=== PATIENT | male | born 1955 | race Caucasian/White ===

== ENCOUNTER 2016-09-26 16:10 | Inpatient (IN) | payer MEDICAID ==
[2016-09-26] MEDS ORDERED: Albuterol/Ipratropium NEB.SOL* Albuterol 2.5 MG/Ipratropium 0.5 MG 3 ML INH ONE ×2 (16:48→17:36)
[2016-09-26] MEDS ORDERED: predniSONE TAB* 20 MG PO ONE (16:50)
[2016-09-26] MEDS ORDERED: NS 0.9% 1000 ML* 1,000 ML IV ONE (16:50)
[2016-09-26 17:04] LABS: Hematocrit 51 % (42-52); Hemoglobin 17.3 g/dl (14.0-18.0); Mean Corpuscular HGB Conc 34 g/dl (31-36); Mean Corpuscular Hemoglobin 32 pg (27-31); Mean Corpuscular Volume 96 fL (80-94); Mean Platelet Volume 10 um3 (7.4-10.4); Red Blood Count 5.34 10^6/ul (4.0-5.4); Red Cell Distribution Width 13 % (10.5-15); White Blood Count 7.5 10^3/ul (3.5-10.8)
--- NOTE | 2016-09-26 17:18 | RAD ---
HISTORY: Shortness of breath COMPARISONS: None VIEWS:1: Single frontal portable view of the chest at 5:08 PM FINDINGS: LINES AND TUBES: None. CARDIOMEDIASTINAL SILHOUETTE: The cardiomediastinal silhouette is normal for portable technique. PLEURA: The costophrenic angles are sharp. No pleural abnormalities are noted. LUNG PARENCHYMA: There is hyperinflation. ABDOMEN: The upper abdomen is clear. There is no subphrenic gas. BONES AND SOFT TISSUES: There are chronic appearing right-sided rib fractures IMPRESSION: HYPERINFLATION, SUGGESTIVE OF COPD. NO ACTIVE CARDIOPULMONARY DISEASE.
[2016-09-26 17:19] LABS: Troponin I 0.01 ng/mL (<0.04)
[2016-09-26 17:21] LABS: BUN/Creatinine Ratio 24.7 (8-20); Blood Urea Nitrogen 19 mg/dL (6-24); CO2 Carbon Dioxide 31 mmol/L (22-32); Calcium 9.7 mg/dL (8.6-10.3); Chloride 103 mmol/L (101-111); EGFR African American 132.1 (>60); EGFR Non-African American 102.7 (>60); Glucose 135 mg/dL (70-100); Sodium 140 mmol/L (133-145)
[2016-09-26 17:33] LABS: Anion Gap 6 mmol/L (2-11); Potassium 3.2 mmol/L (3.5-5.0)
--- NOTE | 2016-09-26 18:20 | ED ---
Milagros Razo Claudia, scribed for Sebastian Stoll MD on 09/26/16 at 1652 . Shortness of Breath - HPI Summary HPI Summary: 60 year old male presents to the ED with SOB. Pt notes that he has had a cough/ congestion for the past week which progressively worsened today. Pt denies any fever or chills. Pt notes that he is a smoker but has not been smoking this week while he felt sick. PT denies any CP, palpations. Pt notes aggravating factor of Sx is when he lays in the supine position. - History of Current Complaint Chief Complaint: EDShortnessOfBreath Time Seen by Provider: 09/26/16 16:45 Hx Obtained From: Patient Onset/Duration: Gradual Onset, Still Present, Worse Since - today Associated Signs & Symptoms: Cough (Productive) PMH/Surg Hx/FS Hx/Imm Hx Previously Healthy: Yes Endocrine/Hematology History: Denies: Hx Diabetes Infectious Disease History: No Infectious Disease History: Denies: Traveled Outside the in Last 30 Days - Family History Known Family History: Negative: Cardiac Disease, Hypertension, Diabetes - Social History Occupation: Employed Full-time Lives: Alone Hx Tobacco Use: Yes Review of Systems Constitutional: Negative Negative: Fever Eyes: Negative ENT: Negative Cardiovascular: Negative Negative: Palpitations, Chest Pain Positive: Shortness Of Breath, Cough Gastrointestinal: Negative Genitourinary: Negative Musculoskeletal: Negative Skin: Negative Neurological: Negative Psychological: Normal All Other Systems Reviewed And Are Negative: Yes Physical Exam Triage Information Reviewed: Yes Vital Signs On Initial Exam: Initial Vitals Temp Pulse Resp BP Pulse Ox 99.2 F 108 24 156/108 90 09/26/16 16:13 09/26/16 16:13 09/26/16 16:13 09/26/16 16:13 09/26/16 16:13 Vital Signs Reviewed: Yes Appearance: Positive: Well-Appearing Skin: Positive: Warm, Dry Eyes: Positive: Normal ENT: Positive: Other - dry mouth Neck: Positive: Supple Respiratory/Lung Sounds: Positive: Wheezes - expiratory wheezes bilterally, Other - mild respiratory distress, good peripheral perfusion. Negative: Clear to Auscultation Cardiovascular: Positive: RRR, Other Abdomen Description: Positive: Nontender, Soft Musculoskeletal: Positive: Normal Neurological: Positive: Normal Psychiatric: Positive: Affect/Mood Appropriate Diagnostics - Vital Signs Vital Signs Temp Pulse Resp BP Pulse Ox 09/26/16 16:13 99.2 F 108 24 156/108 90 - Laboratory Result Diagrams: 09/26/16 16:50 09/26/16 16:50 Lab Statement: Any lab studies that have been ordered have been reviewed, and results considered in the medical decision making process. - Radiology CXR Xray Interpretation: No Acute Changes - NO ACUTE CARDIOPULMONARY DIEASE. HYPERINFLATION, SUGGESTIVE OF COPD. Radiology Interpretation Completed By: Radiologist - EKG No standard instances Cardiac Rate: Tachycardia - HR 102 with infrquent PVC. EKG Rhythm: Sinus Tachycardia Ectopy: PVCs - No previous EKG for comparison. Re-Evaluation - Re-Evaluation 1 Re-Evaluation Time: 17:32 Change: Improved - pt notes after 1st brething treatment he is feeling improved. Course/Dx - Diagnoses Differential Diagnosis/HQI/PQRI: Positive: CHF, COPD Exacerbation, [place], Pneumonia , Other - Primary concern for COPD exacerbation, although does not yet have this medical diagnosis since not seen a physician for nearly a decade. Counseled to quit smoking for 3 minutes. Provider Diagnoses: Hypoxia, COPD exacerbation - Physician Notifications Discussed Care of Patient With: Discussed care of pt with Dr. Echeverria. Dr. Echeverria recommends a flu swab and admission for observation. Time Discussed With Above Provider: 18:17 - Critical Care Time Critical Care Time: 30-74 min Discharge - Discharge Plan Condition: Stable Disposition: ADMITTED TO [facility] documentation as recorded by the Milagros bell Claudia accurately reflects the service I personally performed and the decisions made by , Sebastian Stoll MD.
[2016-09-26] MEDS: methylPREDNISolone 125 MG* 2 ML VIAL IV SCH (18:51)
[2016-09-26] MEDS ORDERED: Temazepam CAP* 15 MG PO PRN (19:23)
[2016-09-26] MEDS ORDERED: Al Hydrox/Mg Hydrox/Simet LIQ* 30 ML UDC PO PRN (19:23)
[2016-09-26] MEDS ORDERED: Potassium Chlor TAB* 20 MEQ TAB.ER PO ONE (19:26)
[2016-09-26 19:40] LABS: Alcohol < 10 mg/dL (<10)
[2016-09-26] MEDS: NS 0.9% 1000 ML* 1,000 ML IV SCH (20:30)
--- NOTE | 2016-09-26 20:42 | HP ---
HISTORY AND PHYSICAL: DATE OF ADMISSION: 09/26/16 PRIMARY CARE PHYSICIAN: None. CHIEF COMPLAINT: Shortness of breath and cough. HISTORY OF PRESENT ILLNESS: The patient is a 60-year-old male with no significant past medical history apart from smoking and alcohol use, who presents complaining of cough and shortness of breath for the past 5 days. The patient stated that his cough is nonproductive. He denies any fevers, but his temperature in the emergency department was noted to be 100.3. He denies myalgias. He stated that he has had problems with shortness of breath and poor appetite due to that. 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 The patient is going to be admitted with a diagnosis of COPD exacerbation. PAST MEDICAL HISTORY: Remote appendectomy. The patient has not seen a physician for several years. MEDICATIONS: None. ALLERGIES: No known drug allergies. FAMILY HISTORY: Mother who secondary to COPD, lung, and throat cancer. Father who at the age of 55 secondary to stroke and COPD. SOCIAL HISTORY: The patient stated that he smokes 2 packs of cigarettes in a week. He stated that he quit it 2 weeks ago. He also drinks 12 pack on a weekend. He denies daily alcohol use. His surrogate is his brother, Marcus Ramirez. He lives alone. REVIEW OF SYSTEMS: Please see history of present illness. The patient stated he lost weight in the past 5 months, but he could not quantify it. He has had no appetite. He denies fevers. All the remaining 14 systems were reviewed with the patient and was otherwise negative. PHYSICAL EXAMINATION GENERAL: This is a very pleasant 60-year-old male with thin body habitus. The patient is in no acute distress. Alert, awake, oriented x3. VITAL SIGNS: Blood pressure of 168/97, heart rate of 96 and regular, respiratory rate 25, oxygen saturation 96% on room air, temperature of 99.2. HEENT: Head atraumatic, normocephalic. Eyes: Pupils equal, reactive to light and accommodation. Oropharynx clear. Mucosa moist. NECK: Supple. No JVD. No bruit bilaterally. RESPIRATORY: Diffuse wheezes in bilateral entire lung hu. There is no increased work of breathing. CARDIOVASCULAR: Regular rate and rhythm. No murmur. ABDOMEN: Slightly protuberant. Soft, nontender. Bowel sounds present in all 4 quadrants. EXTREMITIES: There is no edema,+2 pulses bilaterally. No clubbing or cyanosis. SKIN: On evaluation of the skin, no ecchymotic areas or rashes noted. NEUROLOGIC: Speech clear. Cranial nerves II through XII grossly intact. Motor strength is 5/5 bilaterally. LABORATORY DATA: Shows sodium of 140, potassium of 3.2, chloride 103, bicarb 31, BUN 19, creatinine 0.7. Calcium was 9.7, troponin of 0.01, brain natriuretic peptide was 31. CBC: White cell count of 7.5, hemoglobin of 17.3, hematocrit of 51, and platelets of 160. Rapid flu test was negative. Portable chest x-ray read by the radiologist, impression: "Hyperinflation suggestive of COPD. No active cardiopulmonary disease." The patient's EKG showed sinus tachycardia with left ventricular fascicular block. There was no old EKG available for comparison. IMPRESSION: This 60-year-old male with history of smoking, complaints with chronic obstructive pulmonary disease exacerbation. The patient is going to be placed on Solu-Medrol nebulizer treatments on a scheduled basis. The patient is also going to be ceftriaxone, azithromycin due to most likely bronchitis. The patient also appears to be dehydrated, and he is going to be placed on intravenous hydration. I suspect the patient is drinking more alcohol than he is reporting. Serum alcohol level is going to be obtained. For the time being, the patient is going to be placed on daily thiamine and folate. In regards to the DVT prophylaxis, the patient is going to be on heparin subcutaneously. The patient's code status is full and his surrogate is his brother. TIME SPENT: Approximately 55 minutes were spent on admission of this patient, more than half the time was spent face to face with the patient during the interview and physical exam. [id number]/[facility] #: [id number] MTDD
[2016-09-26] MEDS ORDERED: Mometasone/Formoter 100/5 MDI INH SCH (21:00)
[2016-09-26] MEDS ORDERED: cefTRIAXone VIAL(*) 1,000 MG in NS 0.9% 50 ML* 50 ML IVPB SCH (21:00)
[2016-09-26] MEDS: amLODIPine TAB* 5 MG PO SCH (21:08)
[2016-09-26] MEDS: Docusate CAP* 100 MG PO SCH (21:09)
[2016-09-26] MEDS ORDERED: Azithromycin IV(*) 500 MG in NS 0.9% 250 ML* 250 ML IVPB SCH (21:30)
[2016-09-26] MEDS: Heparin VIAL(*) 5000 UNITS/ML VIAL (FIVE THOUSAND) SUBCUT SCH (21:46)
[2016-09-27] MEDS: Albuterol 2.5 MG/3 ML NEB.SOL* (0.083%) INH SCH ×3 (01:15→09:18)
[2016-09-27] MEDS: methylPREDNISolone 125 MG* 2 ML VIAL IV SCH ×2 (02:07→11:32)
[2016-09-27] MEDS: Acetaminophen TAB* 325 MG PO PRN ×3 (02:07→20:08)
[2016-09-27 05:31] LABS: Hematocrit 43 % (42-52); Hemoglobin 14.6 g/dl (14.0-18.0); Mean Corpuscular HGB Conc 34 g/dl (31-36); Mean Corpuscular Hemoglobin 33 pg (27-31); Mean Corpuscular Volume 95 fL (80-94); Mean Platelet Volume 10 um3 (7.4-10.4); Red Blood Count 4.48 10^6/ul (4.0-5.4); Red Cell Distribution Width 13 % (10.5-15); White Blood Count 3.9 10^3/ul (3.5-10.8)
[2016-09-27 05:45] LABS: BUN/Creatinine Ratio 21.9 (8-20); Calcium 8.6 mg/dL (8.6-10.3); EGFR African American 163.5 (>60); EGFR Non-African American 127.1 (>60); Potassium 3.4 mmol/L (3.5-5.0)
[2016-09-27] MEDS: Heparin VIAL(*) 5000 UNITS/ML VIAL (FIVE THOUSAND) SUBCUT SCH ×3 (06:15→20:50)
[2016-09-27] MEDS: NS 0.9% 1000 ML* 1,000 ML IV SCH (08:27)
[2016-09-27] MEDS: Docusate CAP* 100 MG PO SCH ×2 (08:37→20:08)
[2016-09-27] MEDS: amLODIPine TAB* 5 MG PO SCH (08:37)
[2016-09-27] MEDS ORDERED: Folic Acid TAB* 1 MG PO SCH (09:00)
[2016-09-27] MEDS ORDERED: Thiamine TAB* 100 MG TAB PO SCH (09:00)
[2016-09-27 10:59] LABS: Albumin 3.7 g/dL (3.2-5.2); Direct Bilirubin 0.1 mg/dL (0.03-0.18); Globulin 2.6 g/dL (2-4); Indirect Bilirubin 0.4 mg/dL (0.3-1.0); Total Bilirubin 0.5 mg/dL (0.2-1.0); Total Protein 6.3 g/dL (6.4-8.9)
[2016-09-27] MEDS: LORazepam TAB(*) 1 MG PO SCH ×2 (11:15→13:47)
[2016-09-27] MEDS: Albuterol HFA INHALER* 8 gm MDI INH SCH ×3 (11:16→20:51)
--- NOTE | 2016-09-27 14:45 | PN ---
Subjective Date of Service: 09/27/16 Interval History: Patient seen this afternoon. Reports he feels his breathing is improving. Still with cough that has been dry. Had some symptoms of EtOH withdrawal this morning and received PO ativan, says it made him "stronger" Family History: Unchanged from Admission Social History: Unchanged from Admission Past Medical History: Unchanged from Admission Objective Active Medications: Acetaminophen (Tylenol Tab*) 650 mg PO Q4H PRN Al Hydrox/Mg Hydrox/Simethicone (Maalox Plus*) 30 ml PO Q6H PRN Albuterol (Ventolin Hfa Inhaler*) 2 puff INH Q6H [place] Albuterol/Ipratropium (Duoneb Neb.Any*) 1 neb INH Q2H PRN Amlodipine Besylate (Norvasc Tab*) 5 mg PO DAILY [place] Docusate Sodium (Colace Cap*) 100 mg PO BID [place] Folic Acid (Folvite Tab*) 1 mg PO DAILY [place] Heparin Sodium (Porcine) (Heparin Vial(*)) 5,000 units SUBCUT Q8HR [place] Sodium Chloride (Ns 0.9% 1000 Ml*) 1,000 mls @ 100 mls/hr IV PER RATE [place] Ceftriaxone Sodium 1,000 mg/ (Sodium Chloride) 50 mls @ 200 mls/hr IVPB Q24H [place] Azithromycin 500 mg/ Sodium (Chloride) 250 mls @ 250 mls/hr IVPB Q24H [place] Influenza Virus Vaccine (Fluarix *Quad* *) 0.5 ml IM .ONCE ONE Lorazepam (Ativan Tab(*)) 0 mg PO .PER WAM SCORE [facility] Multivitamins/Minerals (Theragran/Minerals Tab*) 1 tab PO DAILY [facility] Pneumococcal Polyvalent Vaccine (Pneumococcal Vac Polyvalent*) 0.5 ml IM .ONCE ONE Temazepam (Restoril Cap*) 15 mg PO BEDTIME PRN Thiamine HCl (Vitamin B-1 Tab*) 100 mg PO DAILY [facility] Vital Signs 09/27/16 09/27/16 09/27/16 13:08 13:15 13:47 Temperature 98.6 F Pulse Rate 116 Respiratory 18 20 20 Rate Blood Pressure 156/86 (mmHg) O2 Sat by Pulse 88 Oximetry Oxygen Devices in Use Now: Nasal Cannula - 3L Appearance: Middle-aged, M, sitting in bed in NAD Eyes: No Scleral Icterus Ears/Nose/Mouth/Throat: Mucous Membranes Moist Neck: NL Appearance and Movements; NL JVP Respiratory: Symmetrical Chest Expansion and Respiratory Effort, - - Some mild end-expiratory wheezing, good air movement Cardiovascular: NL Sounds; No Murmurs; No JVD, RRR Abdominal: NL Sounds; No Tenderness; No Distention Lymphatic: No Cervical Adenopathy Extremities: No Edema Skin: No Rash or Ulcers Neurological: Alert and Oriented x 3, - - no tremor noted Result Diagrams: 09/27/16 05:18 09/27/16 05:18 Assess/Plan/Problems-Billing Assessment: COPD exacerbation and EtOH withdrawal in a 60 yo M with hx of tobacco and EtOH abuse, possibly undiagnosed HTN as well - Patient Problems (1) COPD exacerbation Current Visit: Yes Comment: Continue steroids (switch to oral prednisone), start spiriva and dulera. Continue prn nebs/inhalers. Will stop ABx (2) Alcohol withdrawal Current Visit: Yes Comment: WAM, prn lorazepam. Continue thiamine, folate, MVM. (3) HTN (hypertension) Current Visit: Yes Comment: Continue amlodipine for now. Will not titrate or add other medications until withdrawal symptoms have resolved (4) DVT prophylaxis Current Visit: Yes Comment: HSQ Status and Disposition: Inpatient for COPD exacerbation, hypoxia
[2016-09-27] MEDS ORDERED: Spiriva Inhaler DEVICE* 1 EACH DEVICE INH ONE (15:00)
[2016-09-27] MEDS: predniSONE TAB* 20 MG PO SCH (16:01)
[2016-09-27] MEDS: Mometasone/Formoter 200/5 MDI INH SCH ×2 (18:12→20:06)
[2016-09-27] MEDS: Tiotropium CAP.INH* CAP.INH/18 MCG (USE ORDER SET !) INH SCH (18:12)
[2016-09-27] MEDS: Albuterol/Ipratropium NEB.SOL* Albuterol 2.5 MG/Ipratropium 0.5 MG 3 ML INH PRN (23:52)
[2016-09-28] MEDS ORDERED: Furosemide IV* 10 MG/ML 2 ML VIAL (20 MG) IV ONE (01:15)
--- NOTE | 2016-09-28 02:14 | PN ---
Progress Note - Progress Note Note: Paged for increase work of breathing and crackles heard on exam from RN. IVFs discontinued, CXR shows mild increase in interstitial markings, will give Lasix 20 mg IV x 1.
[2016-09-28] MEDS: Albuterol HFA INHALER* 8 gm MDI INH SCH ×4 (04:19→22:01)
[2016-09-28] MEDS: Heparin VIAL(*) 5000 UNITS/ML VIAL (FIVE THOUSAND) SUBCUT SCH ×3 (05:09→21:34)
--- NOTE | 2016-09-28 08:07 | RAD ---
INDICATION: Shortness of breath. COMPARISON: Comparison is made with a prior chest x-ray study from every 2016. TECHNIQUE: A portable view of the chest was obtained. FINDINGS: Cardiac and mediastinal contours appear to be within normal limits. The lungs are slightly hyperinflated and clear. No pleural effusion is seen. There are several old right posterior lateral rib fractures. IMPRESSION: NO EVIDENCE FOR ACUTE DISEASE.
[2016-09-28] MEDS: Thiamine TAB* 100 MG TAB PO SCH (08:43)
[2016-09-28] MEDS: amLODIPine TAB* 5 MG PO SCH (08:43)
[2016-09-28] MEDS: Folic Acid TAB* 1 MG PO SCH (08:43)
[2016-09-28] MEDS: predniSONE TAB* 20 MG PO SCH (08:43)
[2016-09-28] MEDS: Docusate CAP* 100 MG PO SCH ×2 (08:43→21:31)
[2016-09-28] MEDS: Multivitamins/Minerals TAB PO SCH (08:43)
[2016-09-28] MEDS ORDERED: Pneumococcal *Vac Polyvalent 0.5 ML VIAL IM ONE (09:00)
[2016-09-28] MEDS ORDERED: Influenza VAC *QUAD* 2016-17* 0.5 ML SYRINGE IM ONE (09:00)
[2016-09-28] MEDS: Mometasone/Formoter 200/5 MDI INH SCH ×2 (10:00→22:01)
[2016-09-28] MEDS: Tiotropium CAP.INH* CAP.INH/18 MCG (USE ORDER SET !) INH SCH (10:00)
--- NOTE | 2016-09-28 14:09 | PN ---
Subjective Date of Service: 09/28/16 Interval History: Overnight events noted, patient received IV lasix. Today patient reports feeling better. Thinks breathing is improving. Says he was ambulating a bit earlier, still feels that he becomes winded. Denies symptoms of EtOH withdrawal. Family History: Unchanged from Admission Social History: Unchanged from Admission Past Medical History: Unchanged from Admission Objective Active Medications: Acetaminophen (Tylenol Tab*) 650 mg PO Q4H PRN Al Hydrox/Mg Hydrox/Simethicone (Maalox Plus*) 30 ml PO Q6H PRN Albuterol (Ventolin Hfa Inhaler*) 2 puff INH Q6H [place] Albuterol/Ipratropium (Duoneb Neb.Any*) 1 neb INH Q2H PRN Amlodipine Besylate (Norvasc Tab*) 5 mg PO DAILY [place] Docusate Sodium (Colace Cap*) 100 mg PO BID [place] Folic Acid (Folvite Tab*) 1 mg PO DAILY [place] Heparin Sodium (Porcine) (Heparin Vial(*)) 5,000 units SUBCUT Q8HR [place] Lorazepam (Ativan Tab(*)) 0 mg PO .PER WAM SCORE [place] Mometasone Furoate/Formoterol Fumar (Dulera 200/5 Mdi*) 2 puff INH BID [place] Multivitamins/Minerals (Theragran/Minerals Tab*) 1 tab PO DAILY [place] Prednisone (Deltasone Tab*) 40 mg PO DAILY [place] Temazepam (Restoril Cap*) 15 mg PO BEDTIME PRN Thiamine HCl (Vitamin B-1 Tab*) 100 mg PO DAILY [place] Tiotropium [place] (Spiriva Cap.Inh*) 1 cap INH DAILY [place] Vital Signs 09/27/16 09/27/16 09/27/16 15:02 15:47 17:05 Temperature 98.0 F 98.4 F Pulse Rate 102 104 Respiratory 22 22 28 Rate Blood Pressure 128/61 138/71 (mmHg) O2 Sat by Pulse 94 97 Oximetry 09/27/16 09/27/16 09/27/16 19:29 19:32 21:32 Temperature 98.8 F 97.5 F Pulse Rate 107 101 Respiratory 28 20 24 Rate Blood Pressure 133/71 143/88 (mmHg) O2 Sat by Pulse 95 98 Oximetry 09/27/16 09/28/16 09/28/16 23:53 01:59 02:04 Temperature 97.5 F 98.1 F Pulse Rate 94 110 102 Respiratory 30 26 25 Rate Blood Pressure 136/86 154/97 (mmHg) O2 Sat by Pulse 99 97 96 Oximetry 09/28/16 09/28/16 09/28/16 04:18 05:58 07:44 Temperature 97.3 F 97.6 F 98.6 F Pulse Rate 106 101 93 Respiratory 30 32 22 Rate Blood Pressure 140/90 137/78 143/84 (mmHg) O2 Sat by Pulse 95 94 96 Oximetry 09/28/16 09/28/16 09/28/16 08:00 09:17 10:02 Temperature 98.0 F Pulse Rate 89 92 Respiratory 14 22 14 Rate Blood Pressure 145/72 (mmHg) O2 Sat by Pulse 96 97 Oximetry 09/28/16 11:17 Temperature 97.4 F Pulse Rate 103 Respiratory 18 Rate Blood Pressure 153/86 (mmHg) O2 Sat by Pulse 90 Oximetry Oxygen Devices in Use Now: Nasal Cannula - 1L Appearance: Middle-aged, M, laying in bed in NAD Eyes: No Scleral Icterus Ears/Nose/Mouth/Throat: Mucous Membranes Moist Neck: NL Appearance and Movements; NL JVP Respiratory: Symmetrical Chest Expansion and Respiratory Effort, - - No wheezing , fair air movement, prolonged expiratory phase Cardiovascular: NL Sounds; No Murmurs; No JVD, RRR Abdominal: NL Sounds; No Tenderness; No Distention Lymphatic: No Cervical Adenopathy Extremities: No Edema Skin: No Rash or Ulcers Neurological: Alert and Oriented x 3 Result Diagrams: 09/27/16 05:18 09/27/16 05:18 Assess/Plan/Problems-Billing Assessment: COPD exacerbation and EtOH withdrawal in a 60 yo M with hx of tobacco and EtOH abuse, possibly undiagnosed HTN as well - Patient Problems (1) COPD exacerbation Current Visit: Yes Comment: Continue oral prednisone, spiriva and dulera. Continue prn nebs/inhalers. (2) Alcohol withdrawal Current Visit: Yes Comment: WAM, prn lorazepam (has only required 2x). Continue thiamine, folate, MVM. (3) HTN (hypertension) Current Visit: Yes Comment: Continue amlodipine for now. (4) DVT prophylaxis Current Visit: Yes Comment: HSQ Status and Disposition: Inpatient for COPD exacerbation, hypoxia, likely d/c 09/29
[2016-09-28] MEDS: LORazepam TAB(*) 1 MG PO SCH (14:45)
[2016-09-28] MEDS: Benzonatate CAP* 100 MG PO PRN (19:44)
[2016-09-28] MEDS: GuaiFENesin DM* 5 ML UDC PO PRN (19:44)
[2016-09-28] MEDS: Acetaminophen TAB* 325 MG PO PRN (20:09)
[2016-09-29] MEDS: Albuterol HFA INHALER* 8 gm MDI INH SCH ×4 (04:48→20:27)
[2016-09-29] MEDS: Heparin VIAL(*) 5000 UNITS/ML VIAL (FIVE THOUSAND) SUBCUT SCH ×3 (05:41→22:45)
[2016-09-29] MEDS: Tiotropium CAP.INH* CAP.INH/18 MCG (USE ORDER SET !) INH SCH (08:57)
[2016-09-29] MEDS: Mometasone/Formoter 200/5 MDI INH SCH ×2 (08:57→20:04)
[2016-09-29] MEDS: Docusate CAP* 100 MG PO SCH ×2 (09:52→22:47)
[2016-09-29] MEDS: predniSONE TAB* 20 MG PO SCH (09:52)
[2016-09-29] MEDS: Multivitamins/Minerals TAB PO SCH (09:52)
[2016-09-29] MEDS: amLODIPine TAB* 5 MG PO SCH (09:52)
[2016-09-29] MEDS: Folic Acid TAB* 1 MG PO SCH (09:53)
[2016-09-29] MEDS: Thiamine TAB* 100 MG TAB PO SCH (09:53)
--- NOTE | 2016-09-29 13:45 | PN ---
Subjective Date of Service: 09/29/16 Interval History: Patient seen this morning. States he feels he is improving slowly. Clint very winded after walk yesterday. Ambulated with patient in the hallway today on RA, O2 sats stayed about 90, however he became tachycardic into 120s and needed to rest at one point due to dizziness. Family History: Unchanged from Admission Social History: Unchanged from Admission Past Medical History: Unchanged from Admission Objective Active Medications: Acetaminophen (Tylenol Tab*) 650 mg PO Q4H PRN Al Hydrox/Mg Hydrox/Simethicone (Maalox Plus*) 30 ml PO Q6H PRN Albuterol (Ventolin Hfa Inhaler*) 2 puff INH Q6H [place] Albuterol/Ipratropium (Duoneb Neb.Any*) 1 neb INH Q2H PRN Amlodipine Besylate (Norvasc Tab*) 5 mg PO DAILY [place] Benzonatate (Tessalon Cap*) 100 mg PO BID PRN Docusate Sodium (Colace Cap*) 100 mg PO BID [place] Folic Acid (Folvite Tab*) 1 mg PO DAILY [place] Guaifenesin/Dextromethorphan (Robitussin Dm*) 5 ml PO Q4H PRN Heparin Sodium (Porcine) (Heparin Vial(*)) 5,000 units SUBCUT Q8HR [place] Lorazepam (Ativan Tab(*)) 0 mg PO .PER WAM SCORE [place] Mometasone Furoate/Formoterol Fumar (Dulera 200/5 Mdi*) 2 puff INH BID [place] Multivitamins/Minerals (Theragran/Minerals Tab*) 1 tab PO DAILY [place] Prednisone (Deltasone Tab*) 40 mg PO DAILY [place] Temazepam (Restoril Cap*) 15 mg PO BEDTIME PRN Thiamine HCl (Vitamin B-1 Tab*) 100 mg PO DAILY [place] Tiotropium [place] (Spiriva Cap.Inh*) 1 cap INH DAILY [place] Vital Signs 09/28/16 09/28/16 09/28/16 14:40 14:45 16:30 Temperature 97.6 F Pulse Rate 105 111 Respiratory 28 28 16 Rate Blood Pressure 142/83 (mmHg) O2 Sat by Pulse 94 96 Oximetry 09/29/16 09/29/16 09/29/16 05:43 07:16 09:00 Temperature 97.4 F 98.0 F Pulse Rate 77 82 75 Respiratory 22 16 14 Rate Blood Pressure 140/81 126/71 (mmHg) O2 Sat by Pulse 95 95 94 Oximetry Oxygen Devices in Use Now: None Appearance: Middle-aged, M, sitting in bed in NAD Eyes: No Scleral Icterus Ears/Nose/Mouth/Throat: Mucous Membranes Moist Neck: NL Appearance and Movements; NL JVP Respiratory: Symmetrical Chest Expansion and Respiratory Effort, Clear to Auscultation Cardiovascular: NL Sounds; No Murmurs; No JVD, - - tachycardia Abdominal: NL Sounds; No Tenderness; No Distention Lymphatic: No Cervical Adenopathy Extremities: No Edema Skin: No Rash or Ulcers Neurological: Alert and Oriented x 3 Result Diagrams: 09/27/16 05:18 09/27/16 05:18 Assess/Plan/Problems-Billing Assessment: COPD exacerbation and EtOH withdrawal in a 60 yo M with hx of tobacco and EtOH abuse, possibly undiagnosed HTN as well - Patient Problems (1) COPD exacerbation Current Visit: Yes Comment: Continue oral prednisone, spiriva and dulera. Continue prn nebs/inhalers. Seems to be tolerating RA but significant tachycardia with exertion. With initial EKG changes will check echo. (2) Alcohol withdrawal Current Visit: Yes Comment: WAM, prn lorazepam (has only required 3x). Continue thiamine, folate, MVM. (3) HTN (hypertension) Current Visit: Yes Comment: Continue amlodipine for now. (4) DVT prophylaxis Current Visit: Yes Comment: HSQ Status and Disposition: Inpatient for COPD exacerbation, hypoxia, likely d/c 09/30
--- NOTE | 2016-09-29 16:04 | ECHO ---
Patient: NANDO HALL [facility] Rec#: [id number] : 1955 Date: 09/29/2016 Age: 60y Height: 172.7 cm / 68.0 in Weight: 67.1 kg / 147.9 lbs Sex: M BSA: 1.8 Room#: [facility] Admit Date#: 09/27/2016 Type: Inpatient Referring: KRYSTLE BUTLER MD Reading: Philippe Aponte MD Nuclear Medical Tech: Esther Crawford Nuclear Medical Tech: Shante Coto RN RDCS Transthoracic Echocardiogram Indication: Dyspnea on exertion BP: 126/71 HR: 90 Rhythm: NSR with PVCs Findings History: Smoker, ETOH use, suspected HTN Technical Comments: The study is technically limited due to the patient's history of COPD. The study is technically limited due to the patient's smoking history. The study was technically limited due to the patient's inability to lay in the left lateral decubitus position. The patient coughed throughout the exam. Completed at 1345. Left Ventricle: The left ventricular chamber size is normal. Moderate concentric left ventricular hypertrophy is observed. There is global hypokinesis of the left ventricle with minor regional variation. There is mild to moderately decreased left ventricular systolic function. The estimated ejection fraction is 40-45%. There is an E to A reversal in the mitral valve flow pattern suggestive of diastolic dysfunction. Left Atrium: The left atrial chamber size is normal. Right Ventricle: The right ventricle is slightly dilated. The right ventricular global systolic function is mildly to moderately reduced. Right Atrium: The right atrium is mildly dilated. Aortic Valve: The aortic valve is trileaflet. The aortic valve leaflets are mildly thickened. There is mild aortic regurgitation. There is no evidence of aortic stenosis. Mitral Valve: There is mitral annular calcification. The mitral valve leaflets are mildly thickened. There is a trace of mitral regurgitation. There is no evidence of mitral stenosis. Tricuspid Valve: The tricuspid valve leaflets are normal. There is trace tricuspid regurgitation. Unable to estimate the right ventricular systolic pressure. Pulmonic Valve: The pulmonic valve appears normal. There is a trace pulmonic regurgitation. There is no pulmonic stenosis. Pericardium: There is no significant pericardial effusion. Aorta: There is moderate dilatation of the ascending aorta. There is no dilatation of the aortic arch. There is moderate dilatation of the aortic root. Pulmonary Artery: The main pulmonary artery appears normal. Venous: The inferior vena cava appears normal in size. There is a greater than 50% respiratory change in the inferior vena cava dimension. Summary: There was not any prior study for comparison. Conclusions The study is technically limited due to the patient's history of COPD. Moderate concentric left ventricular hypertrophy is observed. There is global hypokinesis of the left ventricle with minor regional variation. The estimated ejection fraction is 40-45%. There is an E to A reversal in the mitral valve flow pattern suggestive of diastolic dysfunction. The right atrium is mildly dilated. There is mild aortic regurgitation. There is a trace of mitral regurgitation. There is trace tricuspid regurgitation. Unable to estimate the right ventricular systolic pressure. There is a trace pulmonic regurgitation. There is moderate dilatation of the ascending aorta. There is moderate dilatation of the aortic root. Measurements Name Value Normal Range RVIDd (AP) 2D 3.1 cm (0.9 - 2.6) RVDdMajor (2D) 4.2 cm (2.2 - 4.4) RAd ISD 4CH 5.1 cm (3.4 - 4.9) RA (A4C)W 4.5 cm (2.9 - 4.6) IVSd (2D) 1.5 cm (0.6 - 1) LVPWd (2D) 1.3 cm (0.6 - 1) LVIDd (2D) 4.3 cm (3.6 - 5.4) LVIDs (2D) 3.4 cm - LV FS (2D) 21 % (25 - 45) Aortic Annulus 2.3 cm (1.4 - 2.6) Ao root diameter (2D) 4.3 cm (2.1 - 3.5) Ascending Ao 4.2 cm (2.1 - 3.4) Aortic arch 2.5 cm (1.8 - 3.4) LA dimension (AP) 2D 2.5 cm (2.3 - 3.8) LAd ISD 4CH 4.5 cm (2.9 - 5.3) LA ISD 4CH W 2.9 cm (2.5 - 4.5) Name Value Normal Range LA ESV SP 4CH (A/L) 16 ml - LA ESV SP 2CH (A/L) 45 ml - LA ESV BP (A/L) 28 ml - LA ESV BP (A/L) index 16 ml/m2 - LA ESV SP 4CH (MOD) 16 ml - LA ESV SP 2CH (MOD) 43 ml - Name Value Normal Range MV E-wave Vmax 0.56 m/sec - MV deceleration time 268 msec - MV A-wave Vmax 0.86 m/sec - MV E:A ratio 0.7 ratio - LV septal e' Vmax 0.06 m/sec - LV lateral e' Vmax 0.08 m/sec - LV E:e' septal ratio 9.3 ratio - LV E:e' lateral ratio 7 ratio - Name Value Normal Range AV Vmax 1.5 m/sec - AV VTI 24 cm - AV peak gradient 8.6 mmHg - AV mean gradient 4.5 mmHg - LVOT Vmax 1.2 m/sec - LVOT VTI 18.8 cm - LVOT peak gradient 5.3 mmHg - LVOT mean gradient 2.4 mmHg - Name Value Normal Range IVC diameter 1.2 cm - Name Value Normal Range PV Vmax 0.89 m/sec -
[2016-09-29] MEDS: GuaiFENesin DM* 5 ML UDC PO PRN (19:37)
[2016-09-29] MEDS: Benzonatate CAP* 100 MG PO PRN (19:37)
[2016-09-29] MEDS: Albuterol/Ipratropium NEB.SOL* Albuterol 2.5 MG/Ipratropium 0.5 MG 3 ML INH PRN (20:04)
[2016-09-30] MEDS: Albuterol HFA INHALER* 8 gm MDI INH SCH ×2 (04:50→08:42)
[2016-09-30] MEDS: Heparin VIAL(*) 5000 UNITS/ML VIAL (FIVE THOUSAND) SUBCUT SCH ×2 (05:58→15:20)
[2016-09-30] MEDS: Mometasone/Formoter 200/5 MDI INH SCH (08:39)
[2016-09-30] MEDS: Tiotropium CAP.INH* CAP.INH/18 MCG (USE ORDER SET !) INH SCH (08:41)
[2016-09-30 09:47] VITALS: BP 123/70
[2016-09-30] MEDS: predniSONE TAB* 20 MG PO SCH (09:47)
[2016-09-30] MEDS: Docusate CAP* 100 MG PO SCH (09:47)
[2016-09-30] MEDS: Folic Acid TAB* 1 MG PO SCH (09:47)
--- NOTE | 2016-09-30 09:47 | DCNOTE ---
Patient seen this morning. Says he feels his breathing is much improved and feels better when ambulating. Was on 1L O2 when I came in the room with O2 sat of 94%, O2 removed and patient was 94% on RA. Ambulated around the unit and O2 saturation dropped to 87% just after getting back to the room. Recovered without resuming supplemental O2. HR maxed around 110 On exam, RRR, s1 and s2 present, no m/g/r, lungs CTA B/L, no w/r/r, no LE edema Echo shows some systolic dysfucntion. As patient has significant COPD will hold on beta-tyesha, can use KVNG-I for BP control. Will discharge home with inhalers and he was counseled on tobacco cessation. Will need to f/u with PCP.
[2016-09-30] MEDS: Benzonatate CAP* 100 MG PO PRN (09:50)
[2016-09-30] MEDS: Multivitamins/Minerals TAB PO SCH (09:50)
[2016-09-30] MEDS: Thiamine TAB* 100 MG TAB PO SCH (09:50)
[2016-09-30] MEDS: amLODIPine TAB* 5 MG PO SCH (09:50)
--- NOTE | 2016-09-30 21:05 | DS ---
CC: WESLEY Mackey DISCHARGE SUMMARY: DATE OF ADMISSION: 09/26/16 DATE OF DISCHARGE: 09/30/16 PRIMARY CARE PROVIDER: WESLEY Mackey PRINCIPAL DISCHARGE DIAGNOSES: 1. Chronic obstructive pulmonary disease exacerbation likely secondary to viral infection. 2. Hypertension. 3. Newly diagnosed systolic congestive heart failure. DISCHARGE MEDICATION REGIMEN: 1. Spiriva 1 capsule inhaled daily. 2. Lisinopril 10 mg by mouth daily. 3. Tessalon Perles 100 mg by mouth 2 times daily as needed for cough. 4. Albuterol inhaler 2 puffs inhaled every 6 hours as needed for shortness of breath or wheezing. STUDIES DONE DURING HOSPITALIZATION: Chest x-ray, impression: Hyperinflation, suggestive of COPD. No active cardiopulmonary disease. Repeat chest x-ray, impression: No evidence for acute disease. Transthoracic echocardiogram, conclusions: Studies limited due to the patient's history of COPD, mo derate concentric LVH observed, global hypokinesis with left ventricle with minor regional variation , the estimated ejection fraction is 40% to 45%. There is an E to A reversal with a mitral valve fl ow pattern suggestive of diastolic dysfunction, mildly dilated right atrium, mild aortic regurgitati on, trace mitral regurgitation, trace tricuspid regurgitation, unable to estimate the right ventricu lar systolic pressure, trace pulmonic regurgitation, moderate dilatation of the ascending aorta, and moderate dilatation of the aortic root. HISTORY OF PRESENT ILLNESS AND HOSPITAL SUMMARY: Please see the full history and physical by Dr. Chata Echeverria for full details. Briefly, Mr. Ramirez is a 60-year-old man with a past medical history of tobacco and alcohol use, who presents to the hospital with cough and shortness of breath. He had a low-grade fever here in the h ospital. He was initially treated with IV steroids as well as antibiotics, nebulizers, and inhalers . On the following day, it was felt this is unlikely to be due to bacterial infection and his antib iotics were stopped. He was continued on oral prednisone and inhalers with improvement in his sympt oms. The patient still became hypoxic while ambulating, nadiring at 87% on room air and he will be send home with 2 L of oxygen for him to use with activity. The patient also had some signs of LVH on EKG and while ambulating became tachycardic. An Echo was done, which as above, shows evidence of systolic and diastolic dysfunction. The patient was treated during this hospitalization for hypertension with amlodipine, but he will be discharged on lisinopr il. We will hold off on starting on beta-tyesha for now with the patient's COPD; however, this can be started as an outpatient as well as further workup as to the underlying etiology of his heart fa ilure. There was no concern about some alcohol withdrawal with the patient. He was monitored on and received a few doses of Ativan, but I do not think this was significantly contributing to any symptoms. TIME SPENT: Total time spent on this discharge 45 minutes. This is a summary of hospitalization, please see the full medical record for further details. [id number]/[facility] #: [id number]
== END 2016-09-30 15:30 | disposition home or self-care (01) | DRG 191 ==
LOC: ED 16:10 → MED 17:18 → OBSVTOIN 09-27 12:20
PROVIDERS: ADMIT Internal Medicine; ATTEND Hospitalist
PROC: 3E0234Z Introduction of Serum, Toxoid and Vaccine into Muscle, Percutaneous Approach (ICD-10-PCS; principal; 2016-09-28)
PROC: 3E0234Z Introduction of Serum, Toxoid and Vaccine into Muscle, Percutaneous Approach (ICD-10-PCS; 2016-09-28)
DX: J44.1 Chronic obstructive pulmonary disease with (acute) exacerbation (principal); F10.239 Alcohol dependence with withdrawal, unspecified; I11.0 Hypertensive heart disease with heart failure; I50.20 Unspecified systolic (congestive) heart failure; Z99.81 Dependence on supplemental oxygen; E86.0 Dehydration; R09.02 Hypoxemia; B34.9 Viral infection, unspecified; I08.3 Combined rheumatic disorders of mitral, aortic and tricuspid valves; I77.819 Aortic ectasia, unspecified site; Z82.5 Family history of asthma and other chronic lower respiratory diseases; Z82.3 Family history of stroke; Z80.1 Family history of malignant neoplasm of trachea, bronchus and lung; Z80.8 Family history of malignant neoplasm of other organs or systems; Z72.89 Other problems related to lifestyle; Z87.891 Personal history of nicotine dependence; Z23 Encounter for immunization
CPT/HCPCS: 36415; 71010; 80048; 80076; 80320; 83880; 84145; 84484; 85025; 87040; 87502; 90686; 90732; 93005; 94640; 94760; 94762; 99406; A9270-GY; G0378; G0480; J0456; J0696; J1644; J1940; J2930; J7512

== ENCOUNTER 2016-10-01 16:55 | Observation (INO) | payer MEDICAID ==
--- NOTE | 2016-10-01 19:48 | ED ---
Yaya Razo Karl, scribed for Adi Garvin MD on 10/01/16 at 1718 . Shortness of Breath - HPI Summary HPI Summary: 60 y/o M presents w/ c/o SOB. Pt is normally on oxygen and left yesterday from the hospital at approx 15:00 with a new tank of O2. Pt stated he ran out of O2 again and has no O2 at his home. Pt said he was not feeling well but now feels fine and is no longer short of breath since being given O2 in the ED. Pt has no other complaints. Hx: COPD. - History of Current Complaint Chief Complaint: EDShortnessOfBreath Time Seen by Provider: 10/01/16 17:15 Hx Obtained From: Patient Onset/Duration: Gradual Onset, Resolved - after O2 Timing: Constant Current Severity: None Dyspnea At: Rest Aggrevating Factors: Nothing Alleviating Factors: Oxygen Related History: Similar Episode - Allergy/Home Medications Allergies/Adverse Reactions: Allergies Allergy/AdvReac Type Severity Reaction Status Date / Time No Known Allergies Allergy Verified 09/26/16 18:51 PMH/Surg Hx/FS Hx/Imm Hx Previously Healthy: No Endocrine/Hematology History: Denies: Hx Diabetes Respiratory History: Reports: Hx Chronic Obstructive Pulmonary Disease (COPD) Infectious Disease History: No Infectious Disease History: Denies: Traveled Outside the [place] in Last 30 Days - Family History Known Family History: Negative: Cardiac Disease, Hypertension, Diabetes - Social History Alcohol Use: Weekly Substance Use Type: Reports: None Hx Tobacco Use: Yes Smoking Status (MU): Former Smoker Review of Systems Constitutional: Negative Eyes: Negative ENT: Negative Cardiovascular: Negative Positive: Shortness Of Breath Gastrointestinal: Negative Genitourinary: Negative Musculoskeletal: Negative Skin: Negative Neurological: Negative Psychological: Normal All Other Systems Reviewed And Are Negative: Yes Physical Exam - Summary Physical Exam Summary: VITAL SIGNS: Reviewed. GENERAL: Patient is a well developed and nourished male who is lying comfortable in the stretcher in 2 L of O2. Patient is not in any acute respiratory distress. HEAD AND FACE: No signs of trauma. EYES: PERRLA, EOMI x 2. EARS: Hearing grossly intact. Ear canals and tympanic membranes are WNL MOUTH: Oropharynx within normal limits. NECK: Supple, trachea is midline, no adenopathy, no JVD. CHEST: Symmetric, no tenderness at palpation LUNGS: Clear to auscultation bilaterally. No wheezing or crackles. CVS: RRR, S1 and S2 present, no murmurs or gallops appreciated. ABDOMEN: Soft, NT. No signs of distention. Positive BS. No rebound no guarding, and no masses palpated. EXTREMITIES: FROM in all major joints, no edema, no cyanosis or clubbing. NEURO: Alert and oriented x 3. No acute neurological deficits. Speech is normal and follows commands. SKIN: Dry and warm Back: There is no ecchymosis, no deformity, positive paraspinal muscle tenderness No vertebral tenderness. No saddle anesthesia. Refuses rectal exam. Straight test is negative. Triage Information Reviewed: Yes Vital Signs On Initial Exam: Initial Vitals Temp Pulse Resp BP Pulse Ox 98.6 F 100 18 176/111 94 10/01/16 16:57 10/01/16 16:57 10/01/16 16:57 10/01/16 16:57 10/01/16 16:57 Vital Signs Reviewed: Yes - [place] Coma Scale Coma Scale Total: 15 Diagnostics - Vital Signs Vital Signs Temp Pulse Resp BP Pulse Ox 10/01/16 16:57 98.6 F 100 18 176/111 94 - Laboratory Lab Statement: Any lab studies that have been ordered have been reviewed, and results considered in the medical decision making process. Course/Dx - Course Assessment/Plan: 60 y/o M presents w/ c/o SOB. Pt is normally on oxygen and left yesterday from the hospital at approx 15:00 with a new tank of O2. Pt stated he ran out of O2 again and has no O2 at his home. Pt said he was not feeling well but now feels fine and is no longer short of breath since being given O2 in the ED. Pt has no other complaints. Hx: COPD. I was informed by charge nurse that we are unable to obtain Oxygen tank for the patient to take home. [facility] is not able to deliver O2 at his today. Therefore it is recommended to admit patient as a social admission. Patient continues to be asymptomatic on O2 NC. Patient was ambulated a short distance w/o O2 and he desaturated to 83% and he became SOB. I discuss my physical exam, findings and test results with Dr. Cintron from the hospitalist services and she agrees to admit patient to his services. Patient is hemodynamically stable alert and oriented x 3. Since patient is a social admission and he is asymptomatic I will not perform any other testing. Dr. Cintron agrees. - Diagnoses Differential Diagnosis/HQI/PQRI: Positive: COPD Exacerbation, Other - Dyspnea Provider Diagnoses: Dyspnea, COPD exacerbation - Physician Notifications Discussed Care of Patient With: Dr. Cintron (Hospitalist) at 19:13 who agreed to accept the pt. Discharge - Discharge Plan Condition: Stable Disposition: ADMITTED TO [facility] Referrals: No Primary Care Phys,NOPCP [Primary Care Provider] - The documentation as recorded by the Yaya bell Karl accurately reflects the service I personally performed and the decisions made by me, Adi Garvin MD.
[2016-10-01] MEDS ORDERED: Benzonatate CAP* 100 MG PO PRN (19:58)
[2016-10-01] MEDS ORDERED: Enoxaparin(*) 40 MG/0.4 ML SYR SUBCUT ONE (20:00)
[2016-10-01] MEDS ORDERED: Lisinopril TAB* 10 MG PO ONE (20:00)
[2016-10-01] MEDS ORDERED: Enoxaparin(*) 40 MG/0.4 ML SYR SUBCUT SCH (20:00)
[2016-10-01] MEDS ORDERED: Albuterol HFA INHALER* 8 gm MDI INH SCH (20:00)
[2016-10-01] MEDS ORDERED: Albuterol HFA INHALER* 8 gm MDI INH PRN (20:03)
[2016-10-01] MEDS ORDERED: Albuterol HFA INHALER* 8 gm MDI INH ONE (20:03)
[2016-10-01] MEDS ORDERED: Mometasone/Formoter 200/5 MDI INH ONE (21:00)
[2016-10-01] MEDS ORDERED: Tiotropium CAP.INH* CAP.INH/18 MCG (USE ORDER SET !) INH ONE (22:00)
[2016-10-01] MEDS ORDERED: Spiriva Inhaler DEVICE* 1 EACH DEVICE INH ONE (22:00)
[2016-10-01] MEDS: Lisinopril TAB* 10 MG PO SCH (22:36)
[2016-10-01] MEDS: Tiotropium CAP.INH* CAP.INH/18 MCG (USE ORDER SET !) INH SCH (22:37)
[2016-10-01] MEDS: Mometasone/Formoter 200/5 MDI INH SCH (22:37)
--- NOTE | 2016-10-02 01:01 | HP ---
CC: Iván Gonzales NP HISTORY AND PHYSICAL: DATE OF ADMISSION: 10/01/16 PRIMARY CARE PROVIDER: Iván Gonzales NP. CHIEF COMPLAINT: Shortness of breath. HISTORY OF PRESENT ILLNESS: Mr. Ramirez is a 60-year-old man with recent admission for likely COPD ex acerbation secondary to viral respiratory infection and newly diagnosed chronic systolic CHF, who pr esents to the hospital with shortness of breath. The patient was admitted at [facility] from 09/26/16 until 09/30/16. He was treated for COPD exacerbation and was discharged home on oxyge n to use with activity. The patient also began the Medicaid application process while here in the ospital, which unfortunately limited some of his outpatient medications. He was prescribed albutero l, lisinopril and Tessalon Perles; however, Spiriva initially was unable to be prescribed due to hig h cost. The patient was discharged home. He states that he went to the pharmacy and the only presc ription he filled was for the Tessalon Perles. He states he felt well last night and today. He use d the oxygen all night. He states that he does not have a concentrator at home and was simply using the tank he went home with from the hospital. He states today he went out to do laundry for a few hours during the day. He did not take his oxyge n at that time and he says by the time he came back to the house, he was very short of breath and he went to put his oxygen on and noted that the tank was empty. He came to the emergency department a nd a new tank was unable to be set up, so the patient will be observed here in the hospital and we w ill try to set him up with oxygen tomorrow. PAST MEDICAL HISTORY: Likely COPD, which is undiagnosed; chronic systolic heart failure. PAST SURGICAL HISTORY: Appendectomy. HOME MEDICATIONS: The patient was prescribed: 1. Lisinopril 10 mg by mouth daily. 2. Tessalon Perles 100 mg by mouth 2 times daily as needed for cough. 3. Albuterol inhaler 2 puffs inhaled every 6 hours as needed for shortness of breath or wheezing. ALLERGIES: The patient has no known drug allergies. FAMILY HISTORY: Mother with COPD, lung and throat cancer. Father with stroke and COPD. SOCIAL HISTORY: The patient reports smoking about 2 packs of cigarette a week for at least 30 years until he recently quit. He also states he drinks fairly heavily on the weekends, up to a 12 pack. REVIEW OF SYSTEMS: A 12-point review of systems was negative except for that as noted in the HPI. PHYSICAL EXAMINATION GENERAL: The patient is a middle-aged man sitting in bed, in no apparent distress. VITAL SIGNS: On admission, temperature 98.6, heart rate of 100, respiratory rate of 18, O2 saturati on 94% on room air, blood pressure 176/111. The patient desaturated to 83% while ambulating. HEENT: Moist mucous membranes. NECK: No cervical adenopathy. LUNGS: With some mild wheezing throughout. Fair air movement. CARDIOVASCULAR: Regular rate and rhythm. S1, S2 present. No murmurs, gallops, or rubs. ABDOMEN: Soft, nontender, nondistended. Bowel sounds positive. EXTREMITIES: No cyanosis, clubbing, or edema. NEUROLOGIC: The patient is alert and oriented x3. No focal neurological deficits. ASSESSMENT AND PLAN: Hypoxia due to misuse and possibly miscommunication with [facility] as well as n on-compliance with medications in a 60-year-old man with a history of chronic systolic congestive he art failure and likely undiagnosed chronic obstructive pulmonary disease. 1. Hypoxia secondary to chronic obstructive pulmonary disease. We will place the patient on 2 L of oxygen for now, wean as able. While he is in the hospital, we will put him on Dulera, Spiriva and p.r.n. albuterol. Continue his home Tessalon Perles. 2. Hypertension. Continue the patient's home lisinopril. 3. Chronic systolic congestive heart failure. Held on the beta-tyesha due to the patient's chroni c obstructive pulmonary disease. Will need further workup as an outpatient. 4. DVT prophylaxis, Lovenox subcutaneously. 5. Code status. The patient is a full code. TIME SPENT: Total time spent on this admission 30 minutes, with over the half the time spent face-t o-face with the patient in counseling and coordinating care. [id number]/[facility] #: [id number]
[2016-10-02] MEDS: Tiotropium CAP.INH* CAP.INH/18 MCG (USE ORDER SET !) INH SCH (07:53)
[2016-10-02] MEDS: Mometasone/Formoter 200/5 MDI INH SCH (07:53)
[2016-10-02] MEDS: Lisinopril TAB* 10 MG PO SCH (08:22)
--- NOTE | 2016-10-02 10:55 | DCNOTE ---
Patient seen this morning. No complaints. Discussed at length the importance of filling his prescribed medications, calling [facility] to get his O2 set up and following up with PCP. On exam, mild wheezing diffusely, good air movement, RRR, s1 and s2 present, no m/g/r Discharge home with albuterol, home O2 and Lisinopril. Patient will call [facility] when he gets home to get concentrator set up which he did not do last time. He states he has the voucher for albuterol still. He was instrcuted to have the pharmacist get in touch with me if there is ANY issue with his medications.
[2016-10-02 12:17] VITALS: BP 108/76
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
== END 2016-10-02 13:10 | disposition home or self-care (01) ==
LOC: ED 16:55 → MED 19:56
PROVIDERS: ADMIT Hospitalist; ATTEND Hospitalist
DX: R09.02 Hypoxemia (principal); Z91.14 Patient's other noncompliance with medication regimen; J44.9 Chronic obstructive pulmonary disease, unspecified; I11.0 Hypertensive heart disease with heart failure; I50.22 Chronic systolic (congestive) heart failure; Z87.891 Personal history of nicotine dependence
CPT/HCPCS: 94640; 94760; 96372; 99283; A9270-GY; G0378; J1650

== ENCOUNTER 2018-12-22 17:27 | Emergency (ER) | payer OTHER ==
[2018-12-22] MEDS ORDERED: Tamsulosin CAP* 0.4 MG PO ONE (19:13)
--- NOTE | 2018-12-22 19:19 | ED ---
GI/ HPI - HPI Summary HPI Summary: This patient is a 63 year old male presenting to [facility] with a chief complaint of difficulty urinating and dysuria since this morning. Patient states that last time he urinated was 1400 and since then, he has been unable to urinate. Patient states that he feels the need to urinate currently, but is unable to. The pain is rated 4/10 in severity. Symptoms aggravated by nothing. Symptoms alleviated by nothing. Patient denies any other medical complaints at this time. - History of Current Complaint Chief Complaint: EDUrogenitalProblems Time Seen by Provider: 12/22/18 19:05 Stated Complaint: "DIFFICULTY URINATING PER PT" Hx Obtained From: Patient Onset/Duration: Started Hours Ago, Still Present Timing: Constant Current Severity: Mild Pain Intensity: 4 Additional Locations for Males: Penis Associated Signs and Symptoms: Negative: Fever Aggravating Factor(s): Nothing Alleviating Factor(s): Nothing - Additional Pertinent History Primary Care Physician: [id number] - Allergy/Home Medications Allergies/Adverse Reactions: Allergies Allergy/AdvReac Type Severity Reaction Status Date / Time No Known Allergies Allergy Verified 12/22/18 17:35 Home Medications: Home Medications Atorvastatin* [Lipitor*] 20 mg PO DAILY 12/22/18 [History Confirmed 12/22/18] Budesonide/Formote 160/4.5(NF) [Symbicort 160/4.5 (NF)] 2 puff INH BID 12/22/18 [History Confirmed 12/22/18] Ipratropium HFA INHALER(NF) [Atrovent Hfa Inhaler(NF)] 2 puff INH QID 12/22/18 [ History Confirmed 12/22/18] PMH/Surg Hx/FS Hx/Imm Hx Previously Healthy: No Endocrine/Hematology History: Denies: Hx Diabetes Respiratory History: Reports: Hx Chronic Obstructive Pulmonary Disease (COPD) EENT History: Denies: Hx Deafness Infectious Disease History: No Infectious Disease History: Denies: Traveled Outside the [place] in Last 30 Days - Family History Known Family History: Negative: Cardiac Disease, Hypertension, Diabetes - Social History Alcohol Use: denies, hx indicates often Hx Substance Use: No Substance Use Type: Reports: None Hx Tobacco Use: Yes Smoking Status (MU): Former Smoker Review of Systems Negative: Fever Positive: dysuria, other - difficulty urinating All Other Systems Reviewed And Are Negative: Yes Physical Exam - Summary Physical Exam Summary: Appearance: Well-appearing, Well-nourished, lying in bed comfortably Skin: Warm, dry, no obvious rash Eyes: sclera anicteric, no conjunctival pallor ENT: mucous membranes moist, pharynx appears normal Neck: Supple, nontender Respiratory: Clear to auscultation, no signs of respiratory distress Cardiovascular: Normal S1, S2. No murmurs. Normal distal pulses in tibial and radial bilaterally. Abdomen: Soft, nontender, normal active bowel sounds present Musculoskeletal: Normal, Strength/ROM Intact Neurological: A&Ox3, awake and alert, mentation is normal, speech is fluent and appropriate Psychiatric: affect is normal, does not appear anxious or depressed Pelvic: Swelling about the glans of penis Triage Information Reviewed: Yes Vital Signs On Initial Exam: Initial Vitals Temp Pulse Resp BP Pulse Ox 98.7 F 100 16 169/99 95 12/22/18 17:33 12/22/18 17:33 12/22/18 17:33 12/22/18 17:33 12/22/18 17:33 Vital Signs Reviewed: Yes Diagnostics - Vital Signs Vital Signs Temp Pulse Resp BP Pulse Ox 12/22/18 17:33 98.7 F 100 16 169/99 95 - Laboratory Lab Statement: Any lab studies that have been ordered have been reviewed, and results considered in the medical decision making process. GIGU Course/Dx - Course Course Of Treatment: This patient is a 63 year old male presenting to [facility] with a chief complaint of difficulty urinating and dysuria since this morning. Patient states that last time he urinated was 1400 and since then, he has been unable to urinate. Patient states that he feels the need to urinate currently, but is unable to. Patient is unable to provide a urine sample and refuses catheterization. Patient wishes to be given medication and will go home. Patient will be discharged with a dx of urinary retention and a prescription for flomax. Patient is advised to follow up with PCP in 3 days. The patient is agreeable with this plan. - Diagnoses Provider Diagnoses: Urinary retention Discharge - Sign-Out/Discharge Documenting (check all that apply): Patient Departure Patient Received Moderate/Deep Sedation with Procedure: No - Discharge Plan Condition: Stable Disposition: HOME Prescriptions: Tamsulosin CAP* [Flomax CAP*] 0.4 mg PO BEDTIME #30 cap Patient Education Materials: Urinary Retention in Men (ED), Enlarged Prostate ( BPH) (ED) Referrals: Iván Gonzales NP [Primary Care Provider] - Da Mercado MD [Medical Doctor] - Additional Instructions: There was not much urine in your bladder, so we do have time to see if you can start voiding again tonight. If you can't and start to feel uncomfortable, come back and we will place a urinary catheter. Even if you do start peeing again, you will need followup with your regular doctor or Dr. Mercado, the urology specialist. - Billing Disposition and Condition Condition: STABLE Disposition: Home - Attestation Statements Document Initiated by Jolie: Yes Documenting Scribe: Isai Mathur Provider For Whom Jolie is Documenting (Include Credential): Luis M Leary MD Scribe Attestation: Isai Razo, scribed for Luis M Leary MD on 12/22/18 at 1959. Scribe Documentation Reviewed: Yes Provider Attestation: The documentation as recorded by the Isai bell accurately reflects the service I personally performed and the decisions made by me, Luis M Leary MD Status of Scribe Document: Viewed
[2018-12-22 19:32] VITALS: BP 143/103
== END 2018-12-22 19:35 | disposition home or self-care (01) ==
LOC: ED 17:27
DX: R33.9 Retention of urine, unspecified (principal); Z87.891 Personal history of nicotine dependence
CPT/HCPCS: 99283

== ENCOUNTER 2020-09-21 07:40 | Inpatient (IN) ==
[2020-09-21] MEDS ORDERED: Lorazepam PYXIS KEY ONE (07:43)
[2020-09-21] MEDS ORDERED: LORazepam 2 mg VIAL 1 ml ONE (07:43)
[2020-09-21] MEDS ORDERED: LORazepam 2 mg VIAL 1 ml IV PUSH ONE (07:53)
[2020-09-21] MEDS ORDERED: Lorazepam PYXIS KEY PRN (07:53)
[2020-09-21] MEDS ORDERED: nitroGLYCERIN DRIP 25,000 MCG/250 ML BTL ONE (07:54)
[2020-09-21] MEDS ORDERED: Etomidate 20 mg/10 ml 2 MG/ML 10 ml VIAL IV ONE (07:55)
[2020-09-21] MEDS ORDERED: Succinylcholine 200 mg VIAL 20 mg/ml 10 ml VIAL (200 mg) IV ONE (07:56)
[2020-09-21] MEDS ORDERED: Rocuronium 50 mg VIAL 10 mg/ml 5 ml VIAL (50 mg) ONE (07:56)
[2020-09-21] MEDS ORDERED: Succinylcholine 200 mg VIAL 20 mg/ml 10 ml VIAL (200 mg) ONE (07:56)
[2020-09-21] MEDS ORDERED: Propofol 10 mg/ml 100 ML BTL 100 ML IV ONE (07:57)
[2020-09-21] MEDS ORDERED: Propofol 10 mg/ml 100 ML BTL 100 ML ONE (07:58)
[2020-09-21 08:15] LABS: Hematocrit 42 % (42-52); Hemoglobin 13.7 g/dL (14.0-18.0); Mean Corpuscular HGB Conc 33 g/dL (31-36); Mean Corpuscular Hemoglobin 33 pg (27-31); Mean Corpuscular Volume 99 fL (80-94); Mean Platelet Volume 8.9 fL (7.4-10.4); Platelet Count 328 10^3/uL (150-450); Red Blood Count 4.21 10^6 /uL (4.18-5.48); Red Cell Distribution Width 13 % (10-15); White Blood Count 29.2 10^3/uL (3.5-10.8)
[2020-09-21 08:25] LABS: ALT 18 U/L (7-52); AST 16 U/L (13-39); Albumin 3.9 g/dL (3.2-5.2); Albumin/Globulin Ratio 1.1 (1-3); Alkaline Phosphatase 115 U/L (34-104); Anion Gap 9 mmol/L (2-11); BUN/Creatinine Ratio 18.2 (8-20); Blood Urea Nitrogen 32 mg/dL (6-24); CO2 Carbon Dioxide 22 mmol/L (22-32); Calcium 9.8 mg/dL (8.6-10.3); Chloride 107 mmol/L (101-111); EGFR African American 47.3 (>60); EGFR Non-African American 39.1 (>60); Globulin 3.7 g/dL (2-4); Glucose 208 mg/dL (70-100); Potassium 4.1 mmol/L (3.5-5.0); Sodium 138 mmol/L (135-145); Total Protein 7.6 g/dL (6.4-8.9)
[2020-09-21 08:37] LABS: Troponin I 0.03 ng/mL (<0.03)
[2020-09-21] MEDS ORDERED: Piperacillin/Tazobac ADVAN 3.375 GM in NS 0.9% 100 ml BAG 100 ML IVPB ONE (08:37)
[2020-09-21] MEDS ORDERED: NS 0.9% IV ONE (08:37)
[2020-09-21] MEDS ORDERED: Vancomycin 1,250 MG in NS 0.9% 250 ml 250 ML IVPB ONE (09:00)
[2020-09-21 09:02] LABS: ABS Lymphocytes 2.8 10^3/ul (1.0-4.8); ABS Monocytes 3.3 10^3/ul (0-0.8); Eosinophil % 0.1 %; Lymphocyte % 9.6 %
[2020-09-21] MEDS ORDERED: Ondansetron 4 mg VIAL 2 MG/ML 2 ml VIAL ONE (09:39)
[2020-09-21] MEDS ORDERED: fentaNYL 100 mcg/2 ml 50 MCG/ML VIAL IV SLOW PU ONE (09:52)
[2020-09-21] MEDS ORDERED: fentaNYL 100 mcg/2 ml 50 MCG/ML VIAL ONE (09:53)
[2020-09-21] MEDS ORDERED: Propofol 10 mg/ml 100 ML BTL 100 ML IV SCH (10:00)
[2020-09-21] MEDS ORDERED: Dexmedetomidine 1,000 MCG in NS 0.9% 250 ml 240 ML IV SCH (10:00)
[2020-09-21] MEDS ORDERED: Enoxaparin 40 MG/0.4 ML SYR SUBCUT SCH (10:00)
[2020-09-21] MEDS ORDERED: cefTRIAXone 1 gm/50 mL NS BAG 1 GM/50 ML BAG IVPB SCH (11:00)
[2020-09-21] MEDS ORDERED: Norepinephrine 16MCG/ML IVPRE 4,000 MCG/250 ML BAG IV ONE (11:27)
[2020-09-21] MEDS: Norepinephrine 16MCG/ML IVPRE 4,000 MCG/250 ML BAG IV SCH ×2 (11:35→14:15)
[2020-09-21] MEDS: Pantoprazole VIAL 40 MG VIAL IV SCH (11:39)
[2020-09-21] MEDS ORDERED: Midazolam 2 mg/2 ml VIAL 1 mg/ml 2 ml VIAL (2 mg) IV SLOW PU PRN (11:57)
[2020-09-21] MEDS: Chlorhexidine MOUTHWASH 0.12% 15 ML UDC SWISH SPIT SCH ×2 (12:20→21:44)
[2020-09-21] MEDS ORDERED: Albuterol/Ipratropium NEB.SOL (2.5/0.5 MG) 3 ML NEB.SOLN ONE (12:52)
[2020-09-21] MEDS ORDERED: Cisatracurium 100 MG in NS 0.9% 250 ml 200 ML IV SCH (13:00)
[2020-09-21] MEDS: Azithromycin 500 mg/250 ml NS 500 MG/250 ML BAG IVPB SCH (13:02)
[2020-09-21] MEDS ORDERED: fentaNYL 100 mcg/2 ml 50 MCG/ML VIAL IV SLOW PU PRN (13:04)
[2020-09-21] MEDS: Albuterol/Ipratropium NEB.SOL (2.5/0.5 MG) 3 ML NEB.SOLN INH SCH ×2 (13:05→16:00)
[2020-09-21] MEDS ORDERED: NS 0.9% 250 ml 250 ML ONE (13:14)
[2020-09-21] MEDS: Midazolam 50 MG VIAL IV DRIP 50 ML IV SCH ×2 (13:24→21:17)
[2020-09-21] MEDS ORDERED: Vasopressin 100 UNITS in D5W 250 ml BAG 245 ML IV SCH (15:45)
[2020-09-21] MEDS ORDERED: Norepinephrine IV 8 MG in NS 0.9% 500 ml BAG 492 ML IV SCH (16:00)
[2020-09-21] MEDS ORDERED: Magnesium Sulfate IV 0.5 GM/ML 2 ml VIAL (1 gm) ONE ×2 (19:27→19:38)
[2020-09-21] MEDS ORDERED: EPINEPHrine SYR 0.1MG/ML 10 ml SYRINGE ONE ×2 (19:27→19:38)
[2020-09-21] MEDS ORDERED: Norepinephrine IV 1 MG/ML 4 ML VIAL ONE (19:27)
[2020-09-21] MEDS ORDERED: Sodium Bicarbonate 8.4% SYR 50 ml SYRINGE ONE ×3 (19:27→20:28)
[2020-09-21] MEDS ORDERED: Amiodarone IV 150 mg/3 ml VIAL ONE (19:27)
[2020-09-21] MEDS ORDERED: AMIODARONE 150 MG IV ONE (19:38)
[2020-09-21] MEDS ORDERED: IVPREMIX IV ONE (19:38)
[2020-09-21 19:50] LABS: Troponin I 0.19 ng/mL (<0.03)
[2020-09-21 20:00] LABS: Hematocrit 39 % (42-52); Hemoglobin 12.6 g/dL (14.0-18.0); Mean Corpuscular HGB Conc 32 g/dL (31-36); Mean Corpuscular Hemoglobin 33 pg (27-31); Mean Corpuscular Volume 100 fL (80-94); Mean Platelet Volume 9.3 fL (7.4-10.4); Platelet Count 262 10^3/uL (150-450); Red Blood Count 3.89 10^6 /uL (4.18-5.48); Red Cell Distribution Width 14 % (10-15); White Blood Count 20.6 10^3/uL (3.5-10.8)
[2020-09-21] MEDS ORDERED: CALCIUM GLUCONATE 1GM/50ML NS 1 GM/50 ML BAG IV SCH (20:00)
[2020-09-21 20:07] LABS: INR 1.43 (0.82-1.09)
[2020-09-21 20:11] LABS: Albumin 2.9 g/dL (3.2-5.2); Albumin/Globulin Ratio 1.1 (1-3); Alkaline Phosphatase 98 U/L (34-104); BUN/Creatinine Ratio 15.4 (8-20); Blood Urea Nitrogen 43 mg/dL (6-24); Calcium 7.3 mg/dL (8.6-10.3); EGFR African American 27.7 (>60); EGFR Non-African American 22.9 (>60); Globulin 2.6 g/dL (2-4); Glucose 142 mg/dL (70-100); Magnesium 2.5 mg/dL (1.9-2.7); Sodium 138 mmol/L (135-145); Total Protein 5.5 g/dL (6.4-8.9)
[2020-09-21 20:13] LABS: Anion Gap 12 mmol/L (2-11); CO2 Carbon Dioxide 13 mmol/L (22-32); Chloride 113 mmol/L (101-111); Potassium 8.3 mmol/L (3.5-5.0)
[2020-09-21 20:14] LABS: Troponin I 0.52 ng/mL (<0.03)
[2020-09-21] MEDS ORDERED: Dextrose 50% Syringe 50 ml 25 GM/50 ML SYRINGE IV PUSH ONE (20:15)
[2020-09-21] MEDS ORDERED: Calcium Gluconate 2 GM in NS 0.9% 100 ml BAG 100 ML IV ONE (20:15)
[2020-09-21] MEDS ORDERED: Sodium Bicarbonate 8.4% SYR 50 ml SYRINGE IV ONE (20:15)
[2020-09-21] MEDS ORDERED: Dextrose 50% Syringe 50 ml 25 GM/50 ML SYRINGE IV PUSH PRN (20:15)
[2020-09-21 20:28] LABS: ALT 1688 U/L (7-52); AST 1880 U/L (13-39)
[2020-09-21] MEDS ORDERED: Iodixanol (CONTRAST) 320 MG/ML 100 ML SDV IV ONE (20:30)
[2020-09-21 20:35] LABS: ABS Basophils 0.1 10^3/ul (0-0.2); ABS Lymphocytes 1.9 10^3/ul (1.0-4.8); ABS Monocytes 1.1 10^3/ul (0-0.8); ABS Neutrophils 17.5 10^3/ul (1.5-7.7); ABS Nucleated RBC 0.1 10^3/ul; Eosinophil % 0.2 %; Lymphocyte % 9.4 %; Nucleated Red Blood Cells % 0.3
[2020-09-21] MEDS: EPINEPHRINE 1 MG/ML 1 MG in D5W 250 ML BAG 249 ML IV SCH (21:35)
[2020-09-21] MEDS ORDERED: Cefepime 2 GM in Dextrose 2 GM/50 ML BAG IV SCH (22:00)
[2020-09-21] MEDS: Norepinephrine *QUAD STRENGTH* 16 mg/250 mL NS per protocol IV SCH (22:18)
[2020-09-21] MEDS: methylPREDNISolone SOD 40 mg/ml 1 ml VIAL IV SCH (22:24)
[2020-09-21] MEDS ORDERED: Heparin DRIP 25,000 UNITS BAG 25,000 UNITS/500 ML BAG IV SCH (22:45)
[2020-09-21 22:56] LABS: Hematocrit 33 % (42-52); Hemoglobin 10.6 g/dL (14.0-18.0)
[2020-09-21] MEDS ORDERED: Heparin 5000 UNITS/ML 1 mL VIAL IV SCH (23:00)
[2020-09-21 23:19] LABS: BUN/Creatinine Ratio 15.1 (8-20); Calcium 7.3 mg/dL (8.6-10.3); EGFR African American 25.1 (>60); EGFR Non-African American 20.7 (>60)
[2020-09-21 23:22] LABS: Potassium 5.7 mmol/L (3.5-5.0)
[2020-09-21] MEDS ORDERED: Patiromer POWDER 8.4 GM PAK PO SCH (23:45)
[2020-09-21] MEDS ORDERED: Sodium Bicarb 8.4% Vial 50 ML 150 MEQ in D5W 1000 ml BAG 850 ML IV SCH (23:45)
[2020-09-22 00:14] VITALS: BP 102/72
[2020-09-22] MEDS ORDERED: Patiromer POWDER 8.4 GM PAK PO ONE (00:25)
[2020-09-22 00:30] LABS: Albumin 2.2 g/dL (3.2-5.2); Alkaline Phosphatase 149 U/L (34-104); Globulin 2.3 g/dL (2-4); Indirect Bilirubin 0.4 mg/dL (0.3-1.0); Total Protein 4.5 g/dL (6.4-8.9)
[2020-09-22] MEDS: Albuterol/Ipratropium NEB.SOL (2.5/0.5 MG) 3 ML NEB.SOLN INH SCH ×5 (00:30→13:15)
[2020-09-22] MEDS: Chlorhexidine MOUTHWASH 0.12% 15 ML UDC SWISH SPIT SCH ×4 (00:31→13:10)
[2020-09-22 00:37] LABS: Troponin I 1.71 ng/mL (<0.03)
[2020-09-22 00:47] LABS: ALT 3362 U/L (7-52); AST 4933 U/L (13-39)
[2020-09-22 01:35] LABS: Hematocrit 32 % (42-52); Hemoglobin 9.8 g/dL (14.0-18.0)
[2020-09-22 01:51] LABS: BUN/Creatinine Ratio 13.8 (8-20); Calcium 7.1 mg/dL (8.6-10.3); EGFR African American 21.6 (>60); EGFR Non-African American 17.8 (>60)
[2020-09-22 02:04] LABS: Potassium 6.2 mmol/L (3.5-5.0)
[2020-09-22] MEDS ORDERED: Dextrose 50% Syringe 50 ml 25 GM/50 ML SYRINGE IV PUSH ONE (02:10)
[2020-09-22] MEDS ORDERED: Lactated Ringers 1000 ml BAG 1,000 ML IV SCH (03:00)
[2020-09-22 04:09] LABS: Glucose Confirmatory 489 mg/dL (70-100)
[2020-09-22] MEDS: Norepinephrine *QUAD STRENGTH* 16 mg/250 mL NS per protocol IV SCH (05:13)
[2020-09-22] MEDS: Sodium Bicarb 8.4% Vial 50 ML 150 MEQ in D5W 1000 ml BAG 850 ML IV SCH ×2 (05:14→09:36)
[2020-09-22] MEDS: methylPREDNISolone SOD 40 mg/ml 1 ml VIAL IV SCH ×2 (05:28→14:16)
[2020-09-22 05:44] LABS: BUN/Creatinine Ratio 12.5 (8-20); Blood Urea Nitrogen 46 mg/dL (6-24); Calcium 7.2 mg/dL (8.6-10.3); Chloride 105 mmol/L (101-111); EGFR African American 20.1 (>60); EGFR Non-African American 16.6 (>60); Glucose 487 mg/dL (70-100); Sodium 139 mmol/L (135-145)
[2020-09-22 05:45] LABS: INR 2.38 (0.82-1.09)
[2020-09-22 05:46] LABS: Anion Gap 24 mmol/L (2-11); CO2 Carbon Dioxide 10 mmol/L (22-32); Potassium 6.7 mmol/L (3.5-5.0)
[2020-09-22 05:50] LABS: Troponin I 2.36 ng/mL (<0.03)
[2020-09-22 06:29] LABS: Activated Partial Thrombo Time 194.5 seconds (26.0-38.0)
[2020-09-22 06:51] LABS: Glucose Confirmatory 499 mg/dL (70-100)
[2020-09-22 08:25] LABS: Albumin 1.6 g/dL (3.2-5.2); BUN/Creatinine Ratio 12.2 (8-20); Calcium 7.2 mg/dL (8.6-10.3); EGFR African American 18.6 (>60); EGFR Non-African American 15.4 (>60); Globulin 1.6 g/dL (2-4); Indirect Bilirubin 0.4 mg/dL (0.3-1.0); Total Bilirubin 0.9 mg/dL (0.2-1.0); Total Protein 3.2 g/dL (6.4-8.9)
[2020-09-22 08:36] LABS: Potassium 7.3 mmol/L (3.5-5.0)
[2020-09-22 08:56] LABS: ABS Lymphocytes 1.1 10^3/ul (1.0-4.8); ABS Monocytes 0.2 10^3/ul (0-0.8); ABS Neutrophils 5.1 10^3/ul (1.5-7.7); Eosinophil % 0.6 %; Hematocrit 25 % (42-52); Hemoglobin 7.6 g/dL (14.0-18.0); Lymphocyte % 17.6 %; Mean Corpuscular HGB Conc 30 g/dL (31-36); Mean Corpuscular Hemoglobin 33 pg (27-31); Mean Corpuscular Volume 110 fL (80-94); Mean Platelet Volume 9.1 fL (7.4-10.4); Nucleated Red Blood Cells % 0.7; Platelet Count 168 10^3/uL (150-450); Red Cell Distribution Width 15 % (10-15); White Blood Count 6.5 10^3/uL (3.5-10.8)
[2020-09-22] MEDS ORDERED: Perflutren Lipid Microsphere 3 ML VIAL ONE (09:37)
[2020-09-22] MEDS ORDERED: [UNRECOGNIZED DRUG - OTHER] IV SCH (10:00)
[2020-09-22] MEDS: Pantoprazole VIAL 40 MG VIAL IV SCH (11:14)
[2020-09-22] MEDS: Azithromycin 500 mg/250 ml NS 500 MG/250 ML BAG IVPB SCH (11:14)
[2020-09-22] MEDS: EPINEPHRINE 1 MG/ML 1 MG in D5W 250 ML BAG 249 ML IV SCH (12:44)
[2020-09-22 13:32] LABS: BUN/Creatinine Ratio 11.4 (8-20); Blood Urea Nitrogen 47 mg/dL (6-24); Calcium 6.7 mg/dL (8.6-10.3); Chloride 96 mmol/L (101-111); EGFR African American 17.7 (>60); EGFR Non-African American 14.6 (>60); Sodium 140 mmol/L (135-145)
[2020-09-22 13:34] LABS: Anion Gap 32 mmol/L (2-11); CO2 Carbon Dioxide 12 mmol/L (22-32); Glucose 607 mg/dL (70-100)
[2020-09-22 13:37] LABS: Troponin I 3.95 ng/mL (<0.03)
== END 2020-09-22 13:34 | disposition expired | DRG 871 ==
LOC: ED 07:40 → ICU 09:35
PROVIDERS: ADMIT Surgery Surgical Critical Care; ATTEND Surgery Surgical Critical Care